=== PATIENT | female | born 1945 | race Caucasian/White ===

== ENCOUNTER 2021-01-02 03:25 | Inpatient (IN) | payer OTHER ==
[~2021-01-02] VITALS: Ht 154.9 cm; Wt 50.9 kg
[~2021-01-02 03:25] MED LIST: ASPI-1450 PO; CALC-11 PO; LORA10TA7 PO; METF-960 PO; METO50 PO; OMEP20 PO; OXYB5TAB20 PO; PRED20 PO
[2021-01-02] MEDS ORDERED: BUSP10TA23 PO (03:38)
[2021-01-02] MEDS ORDERED: D-ME473S53 PO (03:38)
[2021-01-02] MEDS ORDERED: RISP2TAB45 PO (03:38)
[2021-01-02] MEDS ORDERED: HYDR-4065 PO (03:43)
[2021-01-02] MEDS ORDERED: LISI20TA24 PO (03:43)
[2021-01-02] MEDS ORDERED: MethylPREDNISolone SOD SUCC 125 MG/2 ML VIAL IVP ONE ×2 (04:00→12:00)
[2021-01-02] MEDS ORDERED: DiphenhydrAMINE HCL 50 MG/ML VIAL IVP ONE ×2 (04:00→05:15)
[2021-01-02 04:14] LABS: COVID AG,FIA SOURCE NASOPHARYNGEAL
[2021-01-02 04:21] LABS: BASOPHILS % (AUTO) 1.2 % (0.0-2.0); HEMATOCRIT 38.2 % (36-46); HEMOGLOBIN 12.6 g/dL (12.0-16.0); LYMPHOCYTES # (AUTO) 3.3 K/uL (1.0-4.8); LYMPHOCYTES % (AUTO) 44.8 % (22.0-44.0); MEAN CORPUSCULAR HEMOGLOBIN 29.4 pg (26.0-34.0); MEAN CORPUSCULAR VOLUME 89 fL (80-100); MONOCYTES # (AUTO) 0.5 K/uL (0.1-1.0); MONOCYTES % (AUTO) 6.3 % (2.0-9.0); NEUTROPHILS # (AUTO) 3.2 K/uL (1.8-7.7); NEUTROPHILS % (AUTO) 43.7 % (40.0-70.0); PLATELET COUNT (AUTO) 367 K/uL (150-450); RED BLOOD CELL COUNT(AUTO) 4.29 MIL/uL (4.00-5.20); RED CELL DISTRIBUTION WIDTH 14.2 % (11.5-14.5)
[2021-01-02 04:35] LABS: ANION GAP 8 mmol/L (8-16); CALCIUM, TOTAL 8.9 mg/dL (8.8-10.5); CARBON DIOXIDE 28 mmol/L (22-29); CHLORIDE 107 mmol/L (98-107); CREATININE 0.61 mg/dL (0.60-1.30); GLOMERULAR FILTR. RATE CALC > 60 mL/min (>60); GLUCOSE,RANDOM 111 mg/dL (70-110); POTASSIUM 3.9 mmol/L (3.5-5.1); SODIUM SERUM 143 mmol/L (136-145); UREA NITROGEN, BLOOD 11 mg/dL (7-18)
[2021-01-02 04:37] LABS: LACTIC ACID 0.9 mmol/L (0.4-2.0)
[2021-01-02 04:39] LABS: B-TYPE NATRIURETIC PEPTIDE 16 pg/mL (0-100)
[2021-01-02 04:42] LABS: INFLUENZA TYPE A NEGATIVE FOR TYPE A (NEGATIVE); INFLUENZA TYPE B NEGATIVE FOR TYPE B (NEGATIVE)
[2021-01-02 04:44] LABS: ALANINE AMINOTRANSFERASE 18 U/L (12-78); ALBUMIN 3.2 g/dL (3.4-5.0); ALKALINE PHOSPHATASE 69 U/L (46-116); ASPARTATE AMINOTRANSFERASE 17 U/L (15-37); BILIRUBIN,TOTAL 0.2 mg/dL (0.1-1.0); TOTAL PROTEIN, SERUM 7.1 g/dL (6.4-8.2)
[2021-01-02] MEDS ORDERED: 0.9% SODIUM CHLORIDE 10 ML SYRINGE IVP PRN (05:15)
[2021-01-02] MEDS ORDERED: ONDANSETRON HCL 4 MG/2 ML VIAL IVP PRN ×2 (05:15→10:15)
[2021-01-02] MEDS ORDERED: ACETAMINOPHEN 325 MG TABLET PO PRN ×2 (05:15→10:15)
[2021-01-02] MEDS ORDERED: DEXTROSE 50%-WATER 25 GM/50 ML SYRINGE IVP PRN (10:15)
[2021-01-02] MEDS ORDERED: BISACODYL 10 MG RECTAL RECTAL SUPPOSITORY PR PRN (10:15)
[2021-01-02] MEDS ORDERED: MAGNESIUM HYDROXIDE SUSPENSION 30 ML UDCUP PO PRN (10:15)
[2021-01-02] MEDS ORDERED: ZOLPIDEM TARTRATE 5 MG TABLET PO PRN (10:15)
[2021-01-02] MEDS ORDERED: MORPHINE SULFATE 2 MG/ML SYRINGE IVP PRN (10:15)
[2021-01-02] MEDS ORDERED: INSULIN LISPRO 100 UNITS/ML SQ PRN (10:15)
[2021-01-02] MEDS ORDERED: HYDROCODONE/ACETAMINOPHEN 5-325 MG TABLET PO PRN (10:15)
[2021-01-02 14:58] LABS: GLUCOMETER DEV NAME(LOC) ERT.5; GLUCOSE,POINT OF CARE 171 MG/DL (70-110)
[2021-01-02] MEDS: MethylPREDNISolone SOD SUCC 125 MG/2 ML VIAL IVP SCH ×2 (15:04→23:47)
[2021-01-02 15:18] LABS: GLUCOSE,POINT OF CARE 115 MG/DL (70-110)
[2021-01-02] MEDS: HEPARIN SODIUM,PORCINE 5,000 UNITS/ML VIAL SQ SCH ×2 (15:19→23:49)
[2021-01-02] MEDS ORDERED: FISH1 PO (15:31)
[2021-01-02] MEDS ORDERED: ATOR20TA65 PO (15:31)
[2021-01-02] MEDS ORDERED: GABA-529 PO (15:31)
[2021-01-02] MEDS ORDERED: ALBU8HFA IH (15:31)
[2021-01-02] MEDS ORDERED: TRAV2.5D7 OU (15:31)
[2021-01-02] MEDS ORDERED: MIRT-92 PO (15:31)
[2021-01-02] MEDS ORDERED: MULT400T15 PO (15:31)
[2021-01-02] MEDS ORDERED: OMEP40CA21 PO (15:31)
[2021-01-02] MEDS ORDERED: BUPR1PAT21 TD (15:31)
[2021-01-02] MEDS ORDERED: NALO12.52 PO (15:31)
[2021-01-02] MEDS ORDERED: BRIM2.5D OU (15:31)
[2021-01-02] MEDS ORDERED: OXYB15TA19 PO (15:31)
[2021-01-02] MEDS ORDERED: DIPR15O TP (15:33)
[2021-01-02] MEDS ORDERED: AMOX1TAB15 PO (15:33)
[2021-01-02 17:03] VITALS: BP 152/92
[2021-01-02] MEDS: MetFORMIN HCL 500 MG TABLET PO SCH (17:29)
[2021-01-02 17:39] LABS: GLUCOMETER DEV NAME(LOC) 6S.1; GLUCOSE,POINT OF CARE 168 MG/DL (70-110)
[2021-01-02 19:25] VITALS: BP 144/98
[2021-01-02] MEDS: DOCUSATE SODIUM 100 MG CAPSULE PO SCH (20:09)
[2021-01-02] MEDS: DiphenhydrAMINE HCL 50 MG/ML VIAL IVP SCH (20:13)
[2021-01-02] MEDS: FAMOTIDINE 10 MG/ML 2 ML VIAL IVP SCH (22:03)
[2021-01-02 22:20] LABS: GLUCOMETER DEV NAME(LOC) 6N.1; GLUCOSE,POINT OF CARE 145 MG/DL (70-110)
[2021-01-03 05:03] VITALS: BP 140/89
[2021-01-03 07:19] LABS: GLUCOMETER DEV NAME(LOC) 6N.1; GLUCOSE,POINT OF CARE 139 MG/DL (70-110)
[2021-01-03 08:02] VITALS: BP 152/73
[2021-01-03] MEDS: HEPARIN SODIUM,PORCINE 5,000 UNITS/ML VIAL SQ SCH (08:13)
[2021-01-03] MEDS: DiphenhydrAMINE HCL 50 MG/ML VIAL IVP SCH (08:14)
[2021-01-03] MEDS: MetFORMIN HCL 500 MG TABLET PO SCH (08:14)
[2021-01-03] MEDS: FAMOTIDINE 10 MG/ML 2 ML VIAL IVP SCH (08:14)
[2021-01-03] MEDS: MethylPREDNISolone SOD SUCC 125 MG/2 ML VIAL IVP SCH (08:14)
[2021-01-03] MEDS: DOCUSATE SODIUM 100 MG CAPSULE PO SCH (08:23)
[2021-01-03] MEDS ORDERED: METOPROLOL TARTRATE 50 MG TABLET PO SCH (09:00)
[2021-01-03] MEDS ORDERED: PANTOPRAZOLE SODIUM 40 MG DR TABLET PO SCH (09:00)
[2021-01-03] MEDS ORDERED: AmLODIPine BESYLATE 5 MG TABLET PO SCH (12:30)
[2021-01-03] MEDS ORDERED: FAMO20 PO (12:51)
[2021-01-03] MEDS ORDERED: AMLO-257 PO (12:54)
[2021-01-03] MEDS ORDERED: PRED-409 PO (12:55)
[2021-01-03] MEDS ORDERED: PRED20 PO (12:55)
[2021-01-03 13:15] LABS: GLUCOMETER DEV NAME(LOC) 6S.1; GLUCOSE,POINT OF CARE 130 MG/DL (70-110)
== END 2021-01-03 14:20 | disposition home or self-care (01) | DRG 916 ==
LOC: EMS 03:28 → 6S 10:05
PROVIDERS: ADMIT Hospitalist; ATTEND Hospitalist
DX: T78.3XXA Angioneurotic edema, initial encounter (principal); E11.9 Type 2 diabetes mellitus without complications; E78.5 Hyperlipidemia, unspecified; F17.200 Nicotine dependence, unspecified, uncomplicated; G47.00 Insomnia, unspecified; Z20.822 Contact with and (suspected) exposure to COVID-19; I10 Essential (primary) hypertension; Z79.899 Other long term (current) drug therapy; Z88.0 Allergy status to penicillin; Z88.8 Allergy status to other drugs, medicaments and biological substances
CPT/HCPCS: 71045; 80053; 82962; 83605; 83880; 84484; 85025; 87040; 87804; 92610; 93005; 99285; J1200; J1644; J2930; J3490; 36415-L1; 36415-TC

== ENCOUNTER 2023-02-28 14:46 | Emergency (ER) | payer OTHER ==
[~2023-02-28] VITALS: Ht 154.9 cm; Wt 64.1 kg
[~2023-02-28 14:46] MED LIST changes: +ALBU18HF12 IH; +AMLO-257 PO; -ASPI-1450 PO; +ATOR20TA65 PO; +BRIM2.5D OU; +BUPR1PAT21 TD; +BUSP10TA23 PO; -CALC-11 PO; +DIPR15O TP; +FAMO20 PO; +FISH1 PO; +GABA-529 PO; +HYDR-4065 PO; -LORA10TA7 PO; +METF-1211 PO; -METF-960 PO; +MIRT-92 PO; +MULT400T15 PO; +NALO12.52 PO; -OMEP20 PO; +OMEP40CA21 PO; +OXYB15TA19 PO; -OXYB5TAB20 PO; +PRED-549 PO; +PRED-554 PO; -PRED20 PO; +PROM473S6 PO; +RISP2TAB45 PO; +TRAV2.5D7 OU
[2023-02-28 14:49] VITALS: TEMP 98.5
[2023-02-28] MEDS ORDERED: KETOROLAC TROMETHAMINE 30 MG/ML VIAL IVP ONE (15:30)
[2023-02-28 15:51] LABS: BASOPHILS % (AUTO) 0.3 % (0.0-2.0); EOSINOPHILS % (AUTO) 2.6 % (1.0-6.0); LYMPHOCYTES # (AUTO) 2.4 K/uL (1.0-4.8); LYMPHOCYTES % (AUTO) 37.2 % (22.0-44.0); MEAN CORPUSCULAR HEMOGLOBIN 30.8 pg (26.0-34.0); MEAN CORPUSCULAR HGB CONC 33.3 G/dL (31.0-37.0); MEAN CORPUSCULAR VOLUME 93 fL (80-100); MONOCYTES # (AUTO) 0.5 K/uL (0.1-1.0); NEUTROPHILS # (AUTO) 3.4 K/uL (1.8-7.7); NEUTROPHILS % (AUTO) 51.9 % (40.0-70.0); PLATELET COUNT (AUTO) 316 K/uL (150-450); RED BLOOD CELL COUNT(AUTO) 4.22 MIL/uL (4.00-5.20); RED CELL DISTRIBUTION WIDTH 13.8 % (11.5-14.5); WHITE BLOOD COUNT (AUTO) 6.5 K/uL (4.5-11.0)
[2023-02-28 15:59] LABS: ANION GAP 3 mmol/L (8-16); CALCIUM, TOTAL 9.9 mg/dL (8.8-10.5); CARBON DIOXIDE 31 mmol/L (22-29); CHLORIDE 106 mmol/L (98-107); CREATININE 0.74 mg/dL (0.60-1.30); GLOMERULAR FILTR. RATE CALC > 60 mL/min (>60); GLUCOSE,RANDOM 117 mg/dL (70-110); POTASSIUM 4.2 mmol/L (3.5-5.1); SODIUM SERUM 140 mmol/L (136-145); UREA NITROGEN, BLOOD 14 mg/dL (7-18)
[2023-02-28 16:05] LABS: ALANINE AMINOTRANSFERASE 25 U/L (12-78); ALBUMIN 3.6 g/dL (3.4-5.0); ALKALINE PHOSPHATASE 87 U/L (46-116); ASPARTATE AMINOTRANSFERASE 25 U/L (15-37); BILIRUBIN,TOTAL 0.2 mg/dL (0.1-1.0); TOTAL PROTEIN, SERUM 7.8 g/dL (6.4-8.2)
[2023-02-28] MEDS ORDERED: DOXY-354 PO (18:07)
[2023-02-28 18:19] VITALS: BP 131/84; PULSE 66; RESP 17
[2023-02-28] MEDS ORDERED: SULF-261 PO (18:30)
== END 2023-02-28 19:01 | disposition home or self-care (01) ==
LOC: EMS 14:47
DX: M54.32 Sciatica, left side (principal); L03.012 Cellulitis of left finger; E11.9 Type 2 diabetes mellitus without complications; I10 Essential (primary) hypertension; M25.552 Pain in left hip; Z98.51 Tubal ligation status; Z88.8 Allergy status to other drugs, medicaments and biological substances
CPT/HCPCS: 99284; 96374; 80053; 85025; 36415; 72100; 73503; J1885

== ENCOUNTER 2023-09-12 09:03 | Emergency (ER) | payer OTHER ==
[~2023-09-12] VITALS: Ht 154.9 cm; Wt 61.8 kg
[~2023-09-12 09:03] MED LIST changes: +BETA15OI30 TP; -DIPR15O TP; +SULF-261 PO
[2023-09-12 09:15] VITALS: TEMP 97.7
[2023-09-12 09:46] LABS: BASOPHILS % (AUTO) 1.2 % (0.0-2.0); EOSINOPHILS % (AUTO) 4.6 % (1.0-6.0); HEMATOCRIT 39.5 % (36-46); LYMPHOCYTES # (AUTO) 2.6 K/uL (1.0-4.8); LYMPHOCYTES % (AUTO) 51.8 % (22.0-44.0); MEAN CORPUSCULAR HEMOGLOBIN 30.5 pg (26.0-34.0); MEAN CORPUSCULAR HGB CONC 32.9 G/dL (31.0-37.0); MEAN CORPUSCULAR VOLUME 93 fL (80-100); MONOCYTES # (AUTO) 0.5 K/uL (0.1-1.0); NEUTROPHILS # (AUTO) 1.6 K/uL (1.8-7.7); NEUTROPHILS % (AUTO) 32.4 % (40.0-70.0); PLATELET COUNT (AUTO) 266 K/uL (150-450); RED BLOOD CELL COUNT(AUTO) 4.26 MIL/uL (4.00-5.20); RED CELL DISTRIBUTION WIDTH 13.7 % (11.5-14.5)
[2023-09-12 09:53] LABS: ANION GAP 8 mmol/L (8-16); CARBON DIOXIDE 30 mmol/L (22-29); CHLORIDE 107 mmol/L (98-107); CREATININE 0.58 mg/dL (0.60-1.30); GLOMERULAR FILTR. RATE CALC > 60 mL/min (>60); GLUCOSE,RANDOM 108 mg/dL (70-110); POTASSIUM 3.6 mmol/L (3.5-5.1); SODIUM SERUM 145 mmol/L (136-145); UREA NITROGEN, BLOOD 10 mg/dL (7-18)
[2023-09-12 09:58] LABS: ALANINE AMINOTRANSFERASE 21 U/L (12-78); ALKALINE PHOSPHATASE 72 U/L (46-116); ASPARTATE AMINOTRANSFERASE 23 U/L (15-37); BILIRUBIN,TOTAL 0.2 mg/dL (0.1-1.0); TOTAL PROTEIN, SERUM 6.4 g/dL (6.4-8.2)
[2023-09-12 11:13] VITALS: BP 131/79; PULSE 72; RESP 16
== END 2023-09-12 11:28 | disposition home or self-care (01) ==
LOC: EMS 09:03
DX: R60.0 Localized edema (principal); I10 Essential (primary) hypertension; E78.00 Pure hypercholesterolemia, unspecified; F41.9 Anxiety disorder, unspecified; E78.5 Hyperlipidemia, unspecified; Z98.51 Tubal ligation status; Z88.5 Allergy status to narcotic agent
CPT/HCPCS: 80048; 80076; 85025; 93970; 99284

== ENCOUNTER → 2024-04-19 | Emergency (ER) | payer OTHER ==
[~2024-04-19] VITALS: Ht 154.9 cm; Wt 54.5 kg
[~2024-04-19] MED LIST changes: -METF-1211 PO; +PANT-31 PO; +PROCTOCM TP
[2024-04-19 10:03] LABS: BASOPHILS % (AUTO) 0.9 % (0.0-2.0); EOSINOPHILS % (AUTO) 3.4 % (1.0-6.0); HEMATOCRIT 39.2 % (36-46); HEMOGLOBIN 13.2 g/dL (12.0-16.0); LYMPHOCYTES # (AUTO) 2.6 K/uL (1.0-4.8); MEAN CORPUSCULAR HEMOGLOBIN 30.6 pg (26.0-34.0); MEAN CORPUSCULAR HGB CONC 33.6 G/dL (31.0-37.0); MEAN CORPUSCULAR VOLUME 91 fL (80-100); MONOCYTES # (AUTO) 0.7 K/uL (0.1-1.0); MONOCYTES % (AUTO) 12.9 % (2.0-9.0); NEUTROPHILS # (AUTO) 2.1 K/uL (1.8-7.7); NEUTROPHILS % (AUTO) 36.8 % (40.0-70.0); PLATELET COUNT (AUTO) 338 K/uL (150-450); WHITE BLOOD COUNT (AUTO) 5.6 K/uL (4.5-11.0)
[2024-04-19 10:14] LABS: ANION GAP 6 mmol/L (8-16); CALCIUM, TOTAL 9.4 mg/dL (8.8-10.5); CARBON DIOXIDE 31 mmol/L (22-29); CHLORIDE 108 mmol/L (98-107); CREATININE 0.72 mg/dL (0.60-1.30); GLOMERULAR FILTR. RATE CALC > 60 mL/min (>60); GLUCOSE,RANDOM 112 mg/dL (70-110); POTASSIUM 3.9 mmol/L (3.5-5.1); SODIUM SERUM 145 mmol/L (136-145); UREA NITROGEN, BLOOD 6 mg/dL (7-18)
[2024-04-19 10:16] LABS: PROTHROMBIN TIME 9.8 SEC (9.4-11.6)
[2024-04-19 10:18] LABS: ALANINE AMINOTRANSFERASE 20 U/L (12-78); ALBUMIN 3.2 g/dL (3.4-5.0); ALKALINE PHOSPHATASE 86 U/L (46-116); ASPARTATE AMINOTRANSFERASE 27 U/L (15-37); BILIRUBIN,TOTAL 0.3 mg/dL (0.1-1.0); LIPASE 46 U/L (16-77); TOTAL PROTEIN, SERUM 6.9 g/dL (6.4-8.2)
[2024-04-19 13:00] LABS: APPEARANCE,URINE CLEAR (CLEAR); BILIRUBIN,URINE NEGATIVE (NEGATIVE); COLOR,URINE LIGHT YELLOW (YELLOW); GLUCOSE, URINE (UA) NEGATIVE (NEGATIVE); KETONES,URINE NEGATIVE (NEGATIVE); LEUKOCYTE ESTERASE ,URINE NEGATIVE (NEGATIVE); NITRATE,URINE NEGATIVE (NEGATIVE); OCCULT BLOOD,URINE NEGATIVE (NEGATIVE); PROTEIN,URINE NEGATIVE (NEGATIVE); SPECIFIC GRAVITIY, URINE 1.016 (1.003-1.030); UROBILINOGEN,URINE <=1.0 mg/dL (<=1.0)
[2024-04-19 13:42] VITALS: BP 155/75; PULSE 73; RESP 16; TEMP 98; O2SAT 98
== END | disposition home or self-care (01) ==
LOC: EMS 09:33
DX: K64.9 Unspecified hemorrhoids (principal); K92.1 Melena; F41.9 Anxiety disorder, unspecified; E78.00 Pure hypercholesterolemia, unspecified; I10 Essential (primary) hypertension; Z79.52 Long term (current) use of systemic steroids; Z79.899 Other long term (current) drug therapy; Z88.0 Allergy status to penicillin; Z88.1 Allergy status to other antibiotic agents; Z88.8 Allergy status to other drugs, medicaments and biological substances; Z98.51 Tubal ligation status
CPT/HCPCS: 71045; 80048; 80076; 81003; 82271; 83690; 85025; 85610; 85730; 86850; 86900; 86901; 93005; 99285; 36415-L1; 36415-TC